=== PATIENT | female | born 2000 ===

== ENCOUNTER 2023-05-13 13:12 | Outpatient (OUT) | payer OTHER, SELFPAY ==
--- NOTE | 2023-05-13 13:16 | US_ITS ---
The [address] [address] Patient Name: JENNIFER LYLES MRN: [id number] date: 2000 Sex: F Assigned Patient Location: US Current Patient Location: Accession/Order Number: [id number] Exam Date: 05/13/2023 13:16 Report Date: 05/13/2023 17:21 At the request of: YUKO PABLO Procedure: US OB transvaginal EXAMINATION: US OB transvaginal HISTORY: MISSED MENSES COMPARISON: No relevant comparison available. FINDINGS: GESTATIONAL SAC: Present and normal appearing. YOLK SAC: Present and normal appearing. POLE: Present and normal appearing. CARDIAC: Present. UTERUS: Normal size and appearance. OVARIES: Right: Normal. Left: Normal. CERVIX: 4.1 cm in length and closed. CUL-DE-SAC: Normal. OTHER: None. AGE BY LMP: 9 weeks 3 days JOHNATHAN BY LMP: 12/13/2023 AGE BY US CRL: 8 weeks 5 days JOHNATHAN BY US CRL: 12/18/2023 US/US OB transvaginal IMPRESSION: 1. Single live intrauterine . Electronically authenticated by: SRIDHAR GAGE Date: 05/13/2023 17:21
== END 2023-05-13 13:13 | disposition home or self-care (01) ==
LOC: US 13:12
PROVIDERS: Visit Provider Obstetrics & Gynecology
DX: Z34.91 Encounter for supervision of normal pregnancy, unspecified, first trimester (principal); Z3A.09 9 weeks gestation of pregnancy
CPT/HCPCS: 76817

== ENCOUNTER 2023-07-19 20:46 | Outpatient (REF) | payer OTHER, SELFPAY ==
[2023-07-22 12:09] LABS: Age Gdln ACOG Testing Note (.); IGP, rfx Aptima HPV ASCU Note (.)
== END 2023-07-19 20:47 | disposition home or self-care (01) ==
LOC: LAB 20:46
PROVIDERS: Visit Provider Physician Assistant
DX: Z01.419 Encounter for gynecological examination (general) (routine) without abnormal findings (principal)
CPT/HCPCS: G0145